=== PATIENT | male | born 1950 | race Caucasian/White ===

== ENCOUNTER 2023-06-02 04:27 | Emergency (ER) | payer MEDICARE, SELFPAY ==
[2023-06-02 04:32] VITALS: BP 137/75; PULSE 75; RESP 20; TEMP 36.4; O2SAT 97; BMI 30.3
--- NOTE | 2023-06-02 04:43 | ED.GENADULT ---
HPI - General Adult General Chief complaint: Extremity Pain/Injury, Lower Stated complaint: L Leg - bleed. Time Seen by Provider: 06/02/23 04:42 History of Present Illness HPI narrative: Patient is a 73-year-old gentleman who picked off the scab on his left lower extremity and had profuse bleeding. He has negative blood thinners or aspirin. The bleeding was coming from small wound on the anterior surface of the left blankenship. Patient placed pressure on the wound as stop bleeding. He is now feeling fine. He has had no chest pain shortness a breath orthopnea no PND. No similar symptoms previously Related Data Home Medications Medication Instructions Recorded Confirmed No Known Home Medications 06/02/23 06/02/23 Allergies Allergy/AdvReac Type Severity Reaction Status Date / Time No Known Drug Allergies Allergy Verified 06/02/23 04:31 Review of Systems Status of ROS: Reports: 6 or more systems reviewed and unremarkable except as noted in History and below PFSH PFS Social History Smoking Status: Never smoker Exam Narrative: Exam Narrative: EXAM GENERAL: Patient appears comfortable and well. EYES: No scleral icterus. ENT: Tympanic membranes and oropharynx normal. THYROID: no thyroid nodules or thyromegaly. LYMPH: No supraclavicular or cervical lymphadenopathy. SKIN: Small abrasion over the anterior surface of the left blankenship no active bleeding. EXT: No dependent lower extremity pedal edema. HEART: Regular rate and rhythm with no murmurs, rubs, or gallops. LUNGS: Clear to auscultation bilaterally with no crackles or wheezes. ABD: Soft, non tender, non distended. PSYCH: Good eye contact, speech is not pressured. Const: Vital Signs, click to edit/add: Vital Signs - 24 hr 06/02/23 04:32 Temperature 97.6 F Pulse Rate [Pulse Oximeter] 75 Respiratory Rate 20 Blood Pressure [Ri ght Upper Arm] 137/75 Pulse Oximetry 97 Oxygen Delivery Me thod Room Air Course Vital Signs Vital signs: Initial Vital Signs Temperature 97.6 F 06/02/23 04:32 Temperature Source Temporal Artery Scan 06/02/23 04:32 Pulse Rate 75 06/02/23 04:32 Pulse Rhythm Regular 06/02/23 04:32 Respiratory Rate 20 06/02/23 04:32 Blood Pressure 137/75 06/02/23 04:32 Blood Pressure Mean 95 06/02/23 04:32 Pulse Oximetry 97 06/02/23 04:32 Oxygen Delivery Method Room Air 06/02/23 04:32 Vital Signs Temperature 97.6 F 06/02/23 04:32 Pulse Rate 75 06/02/23 04:32 Respiratory Rate 20 06/02/23 04:32 Blood Pressure 137/75 06/02/23 04:32 Pulse Oximetry 97 06/02/23 04:32 Oxygen Delivery Method Room Air 06/02/23 04:32 Temperature 97.6 F 06/02/23 04:32 Pulse Rate 75 06/02/23 04:32 Respiratory Rate 20 06/02/23 04:32 Blood Pressure 137/75 06/02/23 04:32 Pulse Oximetry 97 06/02/23 04:32 Oxygen Delivery Method Room Air 06/02/23 04:32 Medical Decision Making MDM Narrative Medical decision making narrative: Patient comes in after removing a small scab on the anterior surface of his blankenship no further bleeding is noted the opening is literally point 4 cm in diameter. No further bleeding present. Patient's tetanus shot is up-to-date. Reassurance offer the small wound is dressed and they can follow-up with her primary physician as needed. Discharge Plan Discharge Clinical Impression: Bleeding Patient Disposition: Home, Self-Care Condition: Stable Additional Instructions: Change dressing daily until no further bleeding present. Activity Level: No Restrictions Discharge Diet: Regular Prescriptions: No Action No Known Home Medications Follow Up/Referrals: Provider,Not a Local [Primary Care Provider] - Stand Alone Forms: [employer] Info Instructions
== END 2023-06-02 04:55 | disposition home or self-care (01) ==
LOC: ED 04:48
PROVIDERS: Emergency Provider Internal Medicine
DX: S80.812A Abrasion, left lower leg, initial encounter (principal)
CPT/HCPCS: 99282; 99283